=== PATIENT | female | born 1990 | race Caucasian/White ===

== ENCOUNTER 2019-05-08 08:26 | Emergency (ER) | payer OTHER, SELFPAY ==
[2019-05-08 09:11] VITALS: BP 115/64; PULSE 97; RESP 20; TEMP 36.8; O2SAT 99
--- NOTE | 2019-05-08 10:10 | ED.URI ---
HPI - URI/Sore Throat General Chief Complaint: Upper Respiratory Infection Stated Complaint: Sore throat Time Seen by Provider: 05/08/19 10:05 Source: patient and RN notes reviewed Mode of arrival: ambulatory Limitations: no limitations History of Present Illness HPI Narrative: Patient presents today with a 5-day history of sore throat, nasal congestion, cough, rhinorrhea. Patient has had a few episodes of posttussive vomiting.Patient describes the pain as burning. Currently rates her sore throat 8/10 and has been using Chloraseptic, Tylenol Cold and flu, and ibuprofen without relief. MD elicited complaint: cough and sore throat Related Data Allergies Allergy/AdvReac Type Severity Reaction Status Date / Time No Known Allergies Allergy Verified 05/08/19 09:27 Review of Systems Review of Systems: Narrative: CONSTITUTIONAL: Denies body aches, fever, chills, or sweats. EYES: Denies visual changes, redness, or discharge. ENT: Denies otalgia.+Sore throat, congestion, rhinorrhea CARDIOVASCULAR: Denies chest pain, palpitations, or edema. RESPIRATORY: Denies dyspnea.+Cough GASTROINTESTINAL: Denies abdominal pain, nausea, or diarrhea.+Posttussive vomiting GENITOURINARY: Denies dysuria or hematuria. SKIN: Denies rash, itching, or wounds. MUSCULOSKELETAL: Denies back pain, joint pain, or myalgia. NEUROLOGIC: Denies headache, numbness, tingling, or weakness. PSYCH: Denies depression or anxiety. PMFSH Comments At time of signature, I have reviewed and agree with nursing past medical, surgical, social and family history unless otherwise noted. Please see nursing chart for further information. There is no relevant family history pertinent to the presenting complaint Exam Narrative: Exam Narrative: GENERAL: Mildly ill-appearing, well-nourished, and in no acute distress. HEAD: Normocephalic, atraumatic. EYES: EOMI. No redness or drainage. Conjunctivae normal. ENT: Mucous membranes pink and moist. Nares Congestion with rhinorrhea. TMs normal bilaterally. Throat is mildly edematous and erythematous. . Uvula midline. NECK: Normal AROM. Supple. No lymphadenopathy. CHEST: No respiratory distress. Clear to auscultation. HEART: Regular rate and rhythm. No murmur appreciated. Normal peripheral pulses. EXTREMITIES: Normal range of motion. No edema. SKIN: Warm, dry, no rash. NEURO: No focal deficits. Alert and oriented x3. Gait steady. PSYCH: Normal affect. No signs of depression or anxiety. Course Vital Signs Vital signs: Vital Signs Temperature 98.3 F 05/08/19 09:11 Pulse Rate 97 05/08/19 09:11 Respiratory Rate 20 05/08/19 09:11 Blood Pressure 115/64 05/08/19 09:11 Pulse Oximetry 99 05/08/19 09:11 Temperature 98.3 F 05/08/19 09:11 Pulse Rate 97 05/08/19 09:11 Respiratory Rate 05/08/19 09:11 Blood Pressure 115/64 05/08/19 09:11 Pulse Oximetry 99 05/08/19 09:11 Reviewed MDM - URI/Sore Throat Differential Diagnosis Differential diagnosis: Likely upper respiratory infection, otitis media, viral infection, pharyngitis and other (Strep throat) Lab Data Attestation: I reviewed the patient's lab results. Labs: Strep Screen Presumptive Negative *(Reference Range: Negative)* Critical Care Time Critical Care Time Critical Care Time: No Discharge Plan Discharge Clinical Impression: Upper respiratory infection Qualifiers: URI type: unspecified URI Qualified Code(s): J06.9 - Acute upper respiratory infection, unspecified Pharyngitis Qualifiers: Pharyngitis/tonsillitis etiology: unspecified etiology Qualified Code(s): J02.9 - Acute pharyngitis, unspecified Patient Disposition: Home, Self-Care Condition: Stable Instructions: Pharyngitis (ED), Upper Respiratory Infection (DC) Additional Instructions: Your rapid strep swab was negative today at [facility]. You will be notified in a few days if the culture comes back positive for strep, and appropr
== END 2019-05-08 10:15 | disposition home or self-care (01) ==
PROVIDERS: Emergency Provider Nurse Practitioner
DX: J06.9 Acute upper respiratory infection, unspecified (principal); J02.9 Acute pharyngitis, unspecified
CPT/HCPCS: 87081; 87880; 99203; G0463

== ENCOUNTER 2019-11-24 09:32 | Emergency (ER) | payer OTHER, SELFPAY ==
[2019-11-24 09:45] VITALS: BP 110/71; PULSE 78; RESP 20; TEMP 37.6; O2SAT 98
--- NOTE | 2019-11-24 09:46 | ED.URI ---
HPI - URI/Sore Throat General Chief Complaint: Upper Respiratory Infection Stated Complaint: sore throat Time Seen by Provider: 11/24/19 09:47 Source: patient History of Present Illness HPI Narrative: Patient presents with a sore throat. Patient states it feels like razors in her throat. No trouble swallowing no drooling. Patient states she recently finished a Z-Basil for an STD 2 days ago. Patient denies any fever no runny nose no nasal congestion no cough patient denies any COVID-19 exposure. MD elicited complaint: sore throat Related Data Home Medications Medication Instructions Recorded Confirmed No Home Medications 11/24/19 11/24/19 Allergies Allergy/AdvReac Type Severity Reaction Status Date / Time No Known Allergies Allergy Verified 11/24/19 09:56 Review of Systems Review of Systems: Narrative: CONSTITUTIONAL: Denies fever, chills, or sweats. EYES: Denies visual changes, redness, or discharge. ENT: Denies rhinorrhea, congestion, or otalgia. Reports sore throat CARDIOVASCULAR: Denies chest pain, palpitations, or edema. RESPIRATORY: Denies cough or dyspnea. GASTROINTESTINAL: Denies abdominal pain, nausea, vomiting, or diarrhea. GENITOURINARY: Denies dysuria or hematuria. SKIN: Denies rash or itching. MUSCULOSKELETAL: Denies back pain, joint pain, or myalgia. NEUROLOGIC: Denies headache, numbness, or weakness. PSYCHIATRIC: Denies anxiety or depression. All systems reviewed & are unremarkable except as noted in HPI and below PMFSH Comments At time of signature, agree with nursing past medical, surgical, social and family history. There is no relevant family history pertinent to the presenting complaint Exam Narrative: Exam Narrative: GENERAL: Well-appearing, well-nourished, and in no acute distress. HEAD: Normocephalic, atraumatic. EYES: PERRLA and EOMI. ENT: Nares clear, no rhinorrhea or epistaxis. Mucous membranes moist. Moderate pharyngeal erythremia, no exudate, no drooling no trouble swallowing. No trismus able to open mouth fully NECK: Supple. CHEST: Clear to auscultation. No respiratory distress. HEART: Regular rate and rhythm. No murmur heard. Normal peripheral pulses. ABDOMEN: Soft, nontender, nondistended, normal active bowel sounds. EXTREMITIES: Normal range of motion. No edema. SKIN: Warm, dry, no rash. NEURO: No focal deficits. Alert and oriented x3. [place] Coma Scale Eye Opening: Spontaneous 4 [place] Coma Scale Motor: Obeys Commands 6 [place] Coma Scale Verbal: Oriented 5 [place] Coma Scale Total 15 Course Vital Signs Vital signs: Vital Signs Temperature 37.6 C 11/24/19 09:45 Pulse Rate 78 11/24/19 09:45 Respiratory Rate 20 11/24/19 09:45 Blood Pressure 110/71 11/24/19 09:45 Pulse Oximetry 98 11/24/19 09:45 Temperature 37.6 C 11/24/19 09:45 Pulse Rate 78 11/24/19 09:45 Respiratory Rate 11/24/19 09:45 Blood Pressure 110/71 11/24/19 09:45 Pulse Oximetry 98 11/24/19 09:45 MDM - URI/Sore Throat Differential Diagnosis Differential diagnosis: Likely upper respiratory infection, otitis media, sinusitis, viral infection, bronchitis, influenza and pharyngitis Lab Data Labs: Strep Screen Presumptive Negative *(Reference Range: Negative)* Critical Care Time Critical Care Time Critical Care Time: No Discharge Plan Discharge Clinical Impression: Pharyngitis Qualifiers: Pharyngitis/tonsillitis etiology: unspecified etiology Qualified Code(s): J02.9 - Acute pharyngitis, unspecified Patient Disposition: Home, Self-Care Condition: Stable Instructions: Antibiotic Form, Pharyngitis (ED) Additional Instructions: Increase fluids especially juices and water [id number] cough and cold medicine of your choice for your symptoms Salt water gargles, throat lozenges or throat sprays as desired change toothbrush in 3-5 days Antibiotic as directed--finished the medication It may take the antibiotic 2-3 day
== END 2019-11-24 10:16 | disposition home or self-care (01) ==
PROVIDERS: Emergency Provider Nurse Practitioner Family
DX: J02.9 Acute pharyngitis, unspecified (principal)
CPT/HCPCS: 87081; 87880; 99213; G0463

== ENCOUNTER 2021-07-14 08:20 | Emergency (ER) | payer OTHER, SELFPAY ==
[2021-07-14 08:24] VITALS: BP 101/64; PULSE 120; RESP 14; TEMP 37.3; O2SAT 97
--- NOTE | 2021-07-14 08:52 | ED.URI ---
HPI - URI/Sore Throat General Chief Complaint: Upper Respiratory Infection Stated Complaint: Fever/Sore Throat Time Seen by Provider: 07/14/21 08:35 Source: patient and RN notes reviewed Mode of arrival: ambulatory Limitations: no limitations History of Present Illness HPI Narrative: Patient presents today with a 2-day history of sore throat, cough, rhinorrhea, body aches, with fever up to 101 started last night and worsening sore throat since last night. Patient also states she has had some posttussive vomiting. She has been using cough drops and ibuprofen without much relief. Pain increases with swallowing. She took a home COVID-19 test today that was negative. She has not been vaccinated against COVID-19. Denies shortness of breath. Related Data Home Medications Medication Instructions Recorded Confirmed [id number] pkg PO 07/14/21 [Daily ] Allergies Allergy/AdvReac Type Severity Reaction Status Date / Time No Known Allergies Allergy Verified 07/14/21 08:36 Review of Systems Review of Systems: CONSTITUTIONAL: Denies chills, or sweats.+ Fever, body aches EYES: Denies visual changes, redness, or discharge. ENT: Denies otalgia.+ Rhinorrhea, congestion, sore throat CARDIOVASCULAR: Denies chest pain, palpitations, or edema. RESPIRATORY: Denies dyspnea.+ Cough GASTROINTESTINAL: Denies abdominal pain, nausea, or diarrhea.+ Posttussive vomiting GENITOURINARY: Denies dysuria or hematuria. SKIN: Denies rash, itching, or wounds. MUSCULOSKELETAL: Denies back pain, joint pain, or myalgia. NEUROLOGIC: Denies headache, numbness, tingling, or weakness. PSYCH: Denies depression or anxiety. PMFSH Comments At time of signature, I have reviewed and agree with nursing past medical, surgical, social and family history unless otherwise noted. Please see nursing chart for further information. There is no relevant family history pertinent to the presenting complaint Exam Narrative: GENERAL: Well-appearing, well-nourished, and in no acute distress. HEAD: Normocephalic, atraumatic. EYES: EOMI. No redness or drainage. Conjunctivae normal. ENT: Mucous membranes pink and moist. Nares slight congestion. No rhinorrhea. TMs normal bilaterally. Throat normal. Uvula midline. NECK: Normal AROM. Supple. No lymphadenopathy. CHEST: No respiratory distress. Clear to auscultation. HEART: Regular rate and rhythm. No murmur appreciated. Normal peripheral pulses. EXTREMITIES: Normal range of motion. No edema. SKIN: Warm, dry, no rash. Capillary refill normal. Normal skin turgor. NEURO: No focal deficits. Alert and oriented x3. Gait steady. PSYCH: Normal affect. No signs of depression or anxiety. Course Course Level of Care: Express Care Visit Vital Signs Vital signs: Vital Signs Temperature 99.1 F 07/14/21 08:24 Pulse Rate 120 H 07/14/21 08:24 Respiratory Rate 14 07/14/21 08:24 Blood Pressure 101/64 07/14/21 08:24 Pulse Oximetry 97 07/14/21 08:24 Temperature 99.1 F 07/14/21 08:24 Pulse Rate 120 H 07/14/21 08:24 Respiratory Rate 14 07/14/21 08:24 Blood Pressure 101/64 07/14/21 08:24 Pulse Oximetry 97 07/14/21 08:24 Reviewed. Upon auscultation, patient was not tachycardic. MDM - URI/Sore Throat Differential Diagnosis Differential diagnosis: Likely upper respiratory infection, viral infection, bronchitis, influenza, pharyngitis and other (Strep throat.) Lab Data Attestation: I reviewed the patient's lab results. Labs: Influenza A Screen Negative Reference Range: Negative Influenza B Screen Negative Reference Range: Negative Strep Screen Presumptive Negative *(Reference Range: Negative)* Critical Care Time Critical Care Time Critical Care Time: No Discharge Plan Discharge Clinic
== END 2021-07-14 09:00 | disposition home or self-care (01) ==
PROVIDERS: Emergency Provider Nurse Practitioner
DX: J06.9 Acute upper respiratory infection, unspecified (principal)
CPT/HCPCS: 87081; 87804; 87880; 99213; G0463

== ENCOUNTER 2023-07-01 14:32 | Outpatient (CLI) | payer OTHER, SELFPAY ==
--- NOTE | ~2023-07-01 | XR_ITS ---
XR abdomen/kub 1V 07/01/2023 14:50 INDICATION: Abdominal pain TECHNIQUE: KUB COMPARISON: None FINDINGS: Bowel gas pattern is normal. Moderate colonic fecal loading There is no evidence of free ai r, mass, organomegaly, ascites or obstruction. No abnormal calculi are seen. The bones appear intac t. IMPRESSION: 1: No acute abdominal abnormality identified. Reviewed, dictated and finalized at location B.
[2023-07-01 19:03] LABS: Hematocrit 40.7 % (37.0-47.0); Mean Corpuscular HGB Conc 31.9 g/dl (32-36); Mean Corpuscular Hemoglobin 28.6 pg (26-34); Mean Corpuscular Volume 89.5 fl (80-100); Mean Platelet Volume 9.9 fl (7.4-10.4); Platelet Count Result 308 k/mm3 (150-375); Red Blood Count 4.55 M/mm3 (4.2-5.4); Red Cell Distribution Width 12.9 % (11.5-14.5); White Blood Count 6.7 K/mm3 (4.5-10.0)
[2023-07-01 19:19] LABS: Alanine Aminotransferase 12 U/L (6-35); Albumin Level 4.1 g/dL (3.5-5.1); Alkaline Phosphatase 53 U/L (38-126); Amylase 120 U/L (30-110); Anion Gap 5 mmol/L (4-12); Aspartate Amino Transferase 31 U/L (14-36); Bilirubin,Total 0.5 mg/dL (0.2-1.3); Blood Urea Nitrogen 10 mg/dL (7-17); Calcium 8.8 mg/dL (8.4-10.2); Carbon Dioxide 28 mmol/L (22-30); Chloride 106 mmol/L (98-107); Estimated Glomerular Filt Rate > 60; Glucose 90 mg/dL (65-110); Lipase 81 U/L (23-300); Potassium 3.7 mmol/L (3.4-5.0); Sodium 139 mmol/L (137-145)
[2023-07-01 20:01] LABS: Free T4 Free Thyroxine 1.08 ng/mL (0.78-2.19)
== END 2023-07-01 14:33 | disposition home or self-care (01) ==
LOC: ANHBWCLAB 14:33
PROVIDERS: PCP Nurse Practitioner Adult Health; Visit Provider Nurse Practitioner Adult Health
DX: N92.0 Excessive and frequent menstruation with regular cycle (principal); R10.9 Unspecified abdominal pain
CPT/HCPCS: 36415; 74018; 80053; 82150; 83690; 84439; 84443; 85027

== ENCOUNTER 2023-08-23 09:05 | Outpatient (CLI) | payer OTHER, SELFPAY ==
[2023-08-23 19:09] LABS: Alanine Aminotransferase 11 U/L (6-35); Albumin Level 4.5 g/dL (3.5-5.1); Alkaline Phosphatase 66 U/L (38-126); Amylase 90 U/L (30-110); Anion Gap 8 mmol/L (4-12); Aspartate Amino Transferase 55 U/L (14-36); Bilirubin,Total 0.7 mg/dL (0.2-1.3); Blood Urea Nitrogen 11 mg/dL (7-17); Carbon Dioxide 27 mmol/L (22-30); Chloride 103 mmol/L (98-107); Cholesterol 185 mg/dL (0-200); Estimated Glomerular Filt Rate > 60; Glucose 70 mg/dL (65-110); HDL Direct 41 mg/dL; Potassium 4.4 mmol/L (3.4-5.0); Sodium 138 mmol/L (137-145); Triglycerides 88 mg/dL (<150)
[2023-08-23 19:24] LABS: LDL Cholesterol Direct 120 mg/dL
[2023-08-23 21:51] LABS: Hemoglobin A1C 4.7 % (<5.7)
== END 2023-08-23 09:06 | disposition home or self-care (01) ==
LOC: ANHBWCLAB 09:06
PROVIDERS: PCP Nurse Practitioner Adult Health; Visit Provider Nurse Practitioner Adult Health
DX: R74.8 Abnormal levels of other serum enzymes (principal); Z83.3 Family history of diabetes mellitus; Z13.9 Encounter for screening, unspecified
CPT/HCPCS: 36415; 80053; 80061; 82150; 83036

== ENCOUNTER 2025-02-22 15:41 | Outpatient (CLI) | payer BC, SELFPAY ==
--- NOTE | ~2025-02-22 | XR_ITS ---
EXAMINATION: XR chest 2V, 02/22/2025 16:00 SAUSAGE STUFFER HISTORY: R05.9 - Cough, unspecified COMPARISON: No comparisons available. Technique: 2 views obtained. Findings: The lungs are clear, no effusion. No pneumothorax. Heart is normal size. Mediastinal and hilar contours are within normal limits. Bony thorax no acute abnormality. Impression: No acute cardiopulmonary abnormality. Reviewed, dictated and finalized at location P. AGE STUFFER Impression: No acute cardiopulmonary abnormality.
--- OUTSIDE RECORDS SUMMARY | 2025-02-22 18:52 | XMS_ITS | Clinical Summary ---
Author Organization [facility] Medical Office Building [address] Address [address] [place] [address] Care Team Providers Care Chlorine Operator Name Role Phone Lui Modi MD Unavailable [phone] Magaly Dillon MD Primary Care Provider [phone] Allergies No known active allergies Medications ibuprofen (ADVIL,MOTRIN) 600 mg tablet Take 1 tablet (600 mg total) by mouth every 6 (six) hours as needed for pain (pain) 30 tablet 2 Active Additional Information Patient not taking.Reported on 07/21/2024 triamcinolone (KENALOG) 0.1 % cream APPLY TO AFFECTED AREA 1-2 TIMES DAILY NEEDED. 15 g 4 Active Additional Information Patient not taking.Reported on 07/21/2024 fluconazole (DIFLUCAN) 150 mg tablet Take one tablet and repeat in 3 days. 2 tablet 4 Active Additional Information Patient not taking.Reported on 07/21/2024 buPROPion XL (WELLBUTRIN XL) 150 mg 24 hr tablet Take 1 tablet (150 mg total) by mouth every morning 4 Active FLUoxetine (PROzac) 20 mg tablet Take 1 tablet (20 mg total) by mouth nightly 4 Active medroxyPROGESTE Nadeem (PROVERA) 10 mg tablet Take 1 tablet three times daily for 3 days followed by 1 tablet twice daily for 3 days followed by 1 tablet daily for 3 days 18 tablet 04/04/202 4 Active Additional Information Patient not taking.Reported on 07/21/2024 tranexamic acid (LYSTEDA) 650 mg tablet Take 2 tablets (1,300 mg total) by mouth 3 (three) times a day 30 tablet 3 4 Active acyclovir (ZOVIRAX) 400 mg tablet Take 2 tablets (800 mg total) by mouth 2 (two) times a day 20 tablet 5 4 Active Additional Information Patient not taking.Reported on 07/21/2024 Active Problems Problem Noted Date Diagnosed Date Insomnia 05/09/2024 Well woman exam 08/06/2022 Overview (08/06/2022): Lab: Pap:h/o LGSIL at the beginning of her last No recent labs. Krishna: Colonoscopy: BMD: Gardasil:she doesn't know if she has had Assessment & Plan (08/06/2022 3:59 PM CDT): Pap done. RTO 12m. I will send the results to the portal. If she has not heard in a week, to call the office. Vaginal discharge 08/06/2022 Assessment & Plan (08/06/2022 4:25 PM CDT): Dryness measures discussed To not wear pads To change to ivory soap Recurrent major depression 04/03/2022 Anxiety and depression 04/03/2022 Assessment & Plan (08/06/2022 4:13 PM CDT): Feels overwhelmed constantly To stay on meds. Assessment & Plan (05/20/2022 5:45 PM ETL MANAGER): Ongoing. PHQ 9 score 20 and osvaldo 7 scores 18. Severe anxiety and depression - was of counselors given patient advised to contact and schedule evaluation. Can also use [employer] to find a counselor - Increase Lexapro 20 mg daily taper risks/benefits and alternatives discussed -follow-up 6 weeks Assessment & Plan (04/03/2022 9:53 AM ETL MANAGER): Recurrent. PHQ 9 and osvaldo 7 scores 19. Severe anxiety and depression - was of counselors given patient advised to contact and schedule evaluation. Can also use [employer] to find a counselor - restart Lexapro 10 mg daily taper risks/benefits and alternatives discussed -follow-up telehealth in 6 weeks Epidermal cyst 04/03/2022 Assessment & Plan (04/03/2022 9:53 AM ETL MANAGER): Referred to dermatology for full body skin exam and treatment Low grade squamous intraepit h lesion on cytologic smear cervix (lgsil) 12/29/2020 Assessment & Plan (08/06/2022 4:11 PM CDT): Pap repeated. colpo discussed Vitamin D deficiency 11/25/2020 Herpes simplex 01/17/2012 Overview (06/08/2023): Note: TYPE [address] 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 Differential diagnosis: Allergic reaction vs atopic dermatitis vs idiopathic. Physical exam WNL. Routine labs WNL. - Patient can try adding Benadryl nightly to current allergy medication routine and monitor for improvement. If some improvement noted can also add Flonase daily - Continue triamcinolone b.i.d. p.r.n. use - Allergy panel ordered - Referred to Cigar Making Machine Supervisor for additional evaluation - continue to monitor symptoms and will re-evaluate at follow-up in 6 weeks Assessment & Plan (04/03/2022 9:55 AM ETL MANAGER): Chronic. Differential diagnosis: Allergic reaction vs atopic dermatitis vs idiopathic. Physical exam WNL - Patient can try adding Benadryl nightly to current allergy medication routine and monitor for improvement. If some improvement noted can also add Flonase daily - refilled triamcinolone b.i.d. p.r.n. 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 Occasional cold sores. No genital outbreaks. Recommend Valtrex at 36 weeks. hydronephrosis during , antepartum 02/08/2021 07/28/2021 Overview (02/08/2021): Left 4.8 mm at 19 weeks 3 days, mild dilation. Cell free DNA is normal. Repeat ultrasound between 32-34 weeks to assure no follow up needed. History of labor 12/04/2020 Incomplete 04/17/2019 05/23/19 20 Overview (04/17/2019): Added automatically from request for surgery [id number] Subchorionic hemorrhage in first trimester 04/03/2019 05/23/2019 Skin lesion 05/30/2015 08/06/2022 Overview (06/18/2016): Skin lesion Assessment & Plan (04/03/2022 9:53 AM ETL MANAGER): Referred to dermatology for full body skin exam and treatment No pathologic diagnosis 12/22/201107/14 Overview (06/17/2016): No diagnosis Immunizations Immunization Administration Dates Next Due DTP 05/19/1994 Influenza, Quadrivalent, Spl it, Intramuscular 12/16/2016 Influenza, Quadrivalent, Spl it, Preservative Free, Intramuscular 01/20/2021(Deferred: Patient Refused) MMR 05/31/2021 OPV 05/19/1994 Surgical History Surgery Date Site/Laterality Comments OTHER SURGICAL HISTORY excision skin lesions on left lower leg DILATION AND CURETTAGE OF UTERUS 04/19/2019 Suction D&C for demise Medical History Medical History Date Comments History of pre-term labor Miscarriage Diabetes mellitus Gestational-2010 Family History Medical History Relation Name Comments Diabetes Father Darrell Diabetes mellit us; Bone cancer Maternal Grandmother Cancer, bone; Cause of : Cancer, bone Diabetes Paternal Grandfather Joe Diabete s mellitus; Cancer Neg Hx no colon, breas t or car park attendant cancer cmt 08/06/22 Relation Name Status Comments Father Darrell Alive Maternal Grandmother Paternal Grandfather Joe Alive Social History Tobacco Use Types Packs/Day Years Used Date Smoking Tobacco: Never Smokeless Tobacco: Never Tobacco Cessation:Counseling Given: Not Answered Alcohol Use Standard Drinks/Week Comments No 0 (1 standard drink = 0.6 oz pur e alcohol) Humiliation, Afraid, Rape, and Kick questionnair e Answer Date Recorded Within the last year, have y ou been afraid of your partner or ex-partner? No 08/06/2022 Within the last year, have y ou been humiliated or emotionally abused in other ways by your partner or ex-partner? No Within the last year, have y ou been kicked, hit, slapped, or otherwise physically hurt by your partner or ex-partner? No 08/06/2022 Within the last year, have y ou been raped or forced to have any kind of sexual activity by your partner or ex-partner? No 08/06/2022 AUDIT-C Answer Date Recorded Q1: How often do you have a drink containing alc ohol? Never 10/15/2021 Q2: How many drinks containi ng alcohol do you have on a typical day when you are drinking? 1 or 2 10/15/2021 Frequency of Binge Drinking Not on file 05/2021 PHQ-2 Answer Date Recorded PHQ-2 Total Score (If total score is 3 or more points, staff should administer the PHQ-9) 0 08/06/2022 Comments No Sex and Gender Information Value Date Recorded Sex Assigned at Not on file Legal Sex Female 7:49 PM ETL MANAGER Gender Identity Female 11/21/2019 1:44 PM CDT Sexual Orientation Straight 07/04/2018 2: 15 PM CDT Occupation Industry Job Start Date Job End Date Not on file Not on file Not on file Not on file Obstetrics History Para Term AB IAB SAB Ectopic Multiple Livin g Live Births 5 4 3 1 1 0 1 0 4 4 Date Outcome GA Total Labor Labor/2nd/3rd Weight Sex Type Anes PTL Lorena A1 A5 Name Clin 2009 36w 4d 2.863 kg (6 lb 5 oz) F Vag-S pont Epidur al Y Livin g Comments:PTL at 26 wee ks 2010 Term 39w 4d F Vag-S pont Y Livin g 2015 Term 38w 4d 5h 49m 5h 28m/0h 09m/0h 12m 3.24 kg (7 lb 2.3 oz) F Vag-S pont Epidur al Y Livin g 9 9 [facility] S[facility]AN A ([facility]) Lui Modi MD Delivery Location:[facility] 0 SAB Demis e 2021 Term 37w 6d 4h 53m 4h 34m/0h 14m/0h 05m 3.248 kg (7 lb 2.6 oz) F Vag-S pont Epidur al N Livin g 9 9 JACK[facility],GI RLASH IRASEMA Salas , Tom parks MD Complications:None Delivery Location:[facility] ([facility]) Last Filed Vital Signs Vital Sign Reading Time Taken Comments Blood Pressure 116/70 07/21/2024 3:32 PM CDT Pulse 103 08/06/2022 3:24 PM CDT Temperature 36.3 C (97.3 F) 04/03/2022 8:55 AM ETL MANAGER Respiratory Rate 18 04/03/2022 8:55 AM ETL MANAGER Oxygen Saturation 97% 04/03/2022 8:55 AM ETL MANAGER Inhaled Oxygen Concentration - - Weight 80.7 kg (178 lb) 07/21/2024 3:32 PM CDT Height 162.6 cm (5' 4) 07/21/2024 3:32 PM CDT Body Mass Index 30.55 07/21/2024 3:32 PM CDT Plan of Treatment Health Maintenance Due Date Last Done Comments DTaP/Tdap/Td Vaccine (2 - Tdap) 2000 05/19/1994 Hepatitis B Screening 10/05/2007 HPV Vaccines (1 - 3-dose SCDM series) 2016 Varicella Vaccines (1 of 2 - 13+ 2-dose series) 06/28/2021 Depression Screening 08/07/2023 08/06/2022, 05/20/2022, 05/20/2022, Additional history exists Cervical Cancer Screening 06/10/20242023, 06/11/2023, 08/06/2022, Additional history exists Influenza Vaccine (#1) 2024 12/16/2016 Regular Well Visit/Exam 18-64 07/21/2025 07/21/2024, 06/11/2023, 08/06/2022, Additional history exists Hepatitis C Screening Completed 11/15/2020, 016 Pneumococcal vaccine <65 Aged Out No longer eligible based on patient's age to complete this topic Procedures Procedure Name Priority Date/Time Associated Diagnosis Comments HIGH RISK HPV DNA DETECTION WITH GENOTYPING Routine 06/11/2023 11:21 AM CDT Screening for malignant neoplasm of the cervix HEPATITIS C ANTIBODY Routine 11/15/2020 11:47 AM CDT Encounter for supervision of other normal in first trimester 10 weeks gestation of from Last 3 Months or Most Recently Relevant to Health Maintenance Results * High Risk HPV DNA Detection with Genotyping (Molecular component) (06/11/2023 11:21 AM CDT) HPV HR 16 Not Detected Not Detected [facility] Comment:Testing performed by : [facility], [address] [place]., [address] HPV HR 18 Not Detected Not Detected [facility] Comment:Testing performed by : [facility], [address] [place]., [address] HPV HR Non 16/18 Not Detected Not Detected [facility] Comment: Interpretive Data Nucleic acid amplification for detection of high-risk Human Papilloma virus (HPV) is performed by the Josephine Jose R 6800 HPV test. This assay specifically detects HPV-16 and HPV-18 genotypes. The following HPV genotypes are detected as high-risk HPV: HPV-31, 33, 35, ,39, 45, 51, 52, 56, 58, 59, 66, and 68. This assay has been approved by the [place] Food and Drug Administration for detection of HPV in cervical specimens collected by a physician using an endocervical brush/spatula or cervical broom and placed in the ThinPrep Pap Test PreservCyt collection containers. The performance characteristics of this test have been verified by the [facility] Molecular Infectious Disease laboratory. Correlate with separately reported cytology results, as applicable. Interpretive data last revised 22 Testing performed by: [facility], [address] [place]., [address] Endocervical 06/11/2023 11:2 1 AM CDT 06/14/2023 1:01 PM CDT Narrative [facility] RUSH - 06/15/2023 4:47 AM CDT Clinical history and diagnosis->DX Z12.4 Testing type->Screening Last menstrual period (date if known)->05/19/23 Mildred Castle DO LAB BODY FLUIDS AND STO OLS ORDERABLES Final Result Performing Organization Address City/[facility] Co de Phone Number [facility] [address] Department of Laboratories [place], [place] [id number] [facility] * Hepatitis C antibody (11/15/2020 11:47 AM CDT) Hep C Ab Nonreactive Nonreactive [facility] ([place]) Comment: Interpretive Data Nonreactive: Antibodies to HCV not detected. Does NOT exclude the possibility of recent exposure to HCV. Equivocal: Equivocal for HCV antibodies. Supplemental molecular testing will be automatically performed to determine infection status in accordance with current CDC screening recommendations. Reactive: Positive for HCV antibodies. This may represent current or past HCV infection. Supplemental molecular testing will be automatically performed to determine current infection status in accordance with current CDC screening recommendations. Interpretive data was last revised on 2019. Testing performed by: [facility], [address] [place] [address]., [address] Blood 11/15/2020 11:4 7 AM CDT 11/15/2020 4:12 PM CDT us Lacy Allison NP LAB MICROBIOLOGY - GENERA L ORDERABLES Edited Result - Final Performing Organization Address [facility] Co de Phone Number [facility] ([place]) [address] [facility] [place] [address] from Last 3 Months or Most Recently Relevant to Health Maintenance Insurance [facility]PA [facility] CHOICE PLUS [facility] Advance Directives For more information, please contact: [phone] * Full Code (Latest Code Status on File) Date Activated Date Inactivated Comments 05/29/2021 11:01 PM 05/31/2021 8:49 PM * Full Code Date Activated Date Inactivated Comments 05/29/2021 1:31 PM 05/29/2021 11:01 PM Full CPR in case of cardiopulmonary arrest * Full Code Date Activated Date Inactivated Comments 04/19/2019 2:35 PM 04/19/2019 7:35 PM Care Teams Chlorine Operator Relationship Specialty Start Date End Date Magaly Dillon MD [address] [place] [address] DR NIEVES [address] [place] [id number] PCP - General Family Practice 04/06/22 Lui Modi MD [address] [place] [address] DR NIEVES [address] [place] [id number] Plate Colorer Obstetrics and Gynecology 04/19/19
--- OUTSIDE RECORDS SUMMARY | 2025-02-22 18:52 | XMS_ITS | Clinical Summary ---
Author Organization [facility] Address [address] [place] [address] Phone Care Team Providers Care Cylinder Batcher Name Role Phone Richie Gottlieb APRN, DRY PLASTERER Primary Care Provider + Allergies No known active allergies Medications ibuprofen (MOTRIN) 600 MG Tablet Take 1 Tab by mouth every 6 hours as needed (mild cramps). 40 Tab 0 11/16/2015 Active Family History Medical History Relation Name Comments Diabetes Father type 2 Diabetes Paternal Grandfather type 2 Relation Name Status Comments Father Paternal Grandfather Social History Tobacco Use Types Packs/Day Years Used Date Smoking Tobacco: Never Alcohol Use Standard Drinks/Week Comments No 0 (1 standard drink = 0.6 oz pur e alcohol) Sexually Active Control Partners Comments Yes Male Comments No Sex and Gender Information Value Date Recorded Sex Assigned at Not on file Legal Sex Female 9:49 PM CDT Gender Identity Not on file Sexual Orientation Not on file Last Filed Vital Signs Vital Sign Reading Time Taken Comments Blood Pressure 98/62 11/16/2015 7:15 AM CDT Pulse 85 11/16/2015 7:15 AM CDT Temperature 36.4 C (97.5 F) 11/16/2015 7:15 AM CDT Respiratory Rate 16 11/16/2015 7:15 AM CDT Oxygen Saturation 98% 11/15/2015 10:30 PM CDT Inhaled Oxygen Concentration - - Weight 71.9 kg (158 lb 8 oz) 11/14/2015 12:17 PM CDT Height 162.6 cm (5' 4) 11/14/2015 12:17 PM CDT Body Mass Index 27.21 11/14/2015 12:17 PM CDT Plan of Treatment Health Maintenance Due Date Last Done Comments Hepatitis C Virus (HCV) Screening 1989 TdaP Immunization 1989 Hepatitis B Immunization (1 of 3 - 19+ 3-dose series) 2008 Pap Smear 2010 Human Papillomavirus (HPV) Immunization (1 - 3-dose SCDM series) 2016 Cervical Cancer Screening (CCS) 10/05/2019 HPV/Cotest 10/05/2019 Influenza Immunization (#1) 2024 SARS-COV-2 Immunization ( - season) 2024 Respiratory Syncytial Virus (RSV) Immunization (Adult) (1 - 1-dose 75+ series) 2064 Meningococcal Immunization (ACWY) Aged Out No longer eligible based on patient's age to complete this topic Pneumococcal Immunization Combined Aged Out No longer eligible based on patient's age to complete this topic Rotavirus Immunization Aged Out No lo nger eligible based on patient's age to complete this topic Advance Directives * Full Code (Latest Code Status on File) Date Activated Date Inactivated Comments 11/14/2015 12:17 PM 11/16/2015 6:22 PM CPR-Full Deanna tment: FULL ARREST: Attempt Resuscitation/CPR wit intubation and mechanical ventilation. PRE-ARREST: Use entire range of life support measures to stabilize the patient. * Full Code Date Activated Date Inactivated Comments 11/08/2015 7:11 PM 11/08/2015 11:19 PM CPR-Full Tr eatment: FULL ARREST: Attempt Resuscitation/CPR wit intubation and mechanical ventilation. PRE-ARREST: Use entire range of life support measures to stabilize the patient. * Full Code Date Activated Date Inactivated Comments 10/29/2015 4:15 PM 10/29/2015 6:49 PM CPR-Full Mynor atment: FULL ARREST: Attempt Resuscitation/CPR wit intubation and mechanical ventilation. PRE-ARREST: Use entire range of life support measures to stabilize the patient. * Full Code Date Activated Date Inactivated Comments 10/10/2015 4:31 PM 10/10/2015 8:45 PM CPR-Full Mynor atment: FULL ARREST: Attempt Resuscitation/CPR wit intubation and mechanical ventilation. PRE-ARREST: Use entire range of life support measures to stabilize the patient. * Full Code Date Activated Date Inactivated Comments 10/09/2015 3:42 PM 10/09/2015 8:46 PM CPR-Full Mynor atment: FULL ARREST: Attempt Resuscitation/CPR wit intubation and mechanical ventilation. PRE-ARREST: Use entire range of life support measures to stabilize the patient. Care Teams Cylinder Batcher Relationship Specialty Start Date End Date Richie Gottlieb, INSIGHTS STRATEGIST, DRY PLASTERER [address] [facility] [address] [place] [address] PCP - General Internal Medicine 11/15/15
--- OUTSIDE RECORDS SUMMARY | 2025-02-22 18:52 | XMS_ITS | Encounter Summary ---
Author Organization [facility] Address [address] [place] [address] Phone Care Team Providers Care Information Security Specialist Name Role Phone Richie Gottlieb APRN, CNP Primary Care Provider + Reason for Visit * Reason Onset Date Comments New Patient 09/06/2020 new pt appt Encounter Details Date Type Department Care Team (Late st Contact Info) Description 09/06/2020 Telephone [facility] [address] [place] [address] Richie Gottlieb, KOBI, BALANCE AND HAIRSPRING ASSEMBLER [address] [place] [address] [address] [place] [address] New Patient (new pt appt) Social History Tobacco Use Types Packs/Day Years [...] on file Sexual Orientation Not on file documented as of this encounter Miscellaneous Notes * Telephone Encounter - Sharon Britt Rocco - 09/06/2020 12:09 PM CDT ----- Message from Emily Gee sent at 09/06/2020 9:44 AM CDT ----- Regarding: New Patient Contact: Amanda Keene [facility] Primary Provider Request Insurance of patient: Medicaid [place] Name of person calling: Amanda Relationship to patient: self Preferred phone number: [phone] Alternate phone number: na Region / Office location preference: [place] Provider preference (male/female, specific provider name): Dr. Ross Keys Willing to see someone other than physician, such as FABBY PARKER, resident? yes Patient reason for appointment/any current symptoms: establish Other information (including need for shipwright helper): no Route ALL calls to: P [facility] PATIENT LUMBER SORTER MACHINE documented in this encounter Plan of Treatment Not on file documented as of this encounter Visit Diagnoses Not on filedocumented in this encounter Care Teams Information Security Specialist Relationship Specialty Start Date End Date Richie Gottlieb, WAREHOUSE ORDER SELECTOR, BALANCE AND HAIRSPRING ASSEMBLER [address] [place] [address] PCP - General Internal Medicine 11/15/15 documented as of this encounter
== END 2025-02-22 15:42 | disposition home or self-care (01) ==
PROVIDERS: PCP Nurse Practitioner Adult Health; Visit Provider Nurse Practitioner Adult Health
DX: R05.9 Cough, unspecified (principal)
CPT/HCPCS: 71046